=== PATIENT | female | born 2000 | race Caucasian/White ===

== ENCOUNTER 2020-04-28 21:12 | Emergency (ER) | payer OTHER ==
--- NOTE | 2020-04-28 21:28 | EDM.PDOC ---
ED HPI GENERAL MEDICAL PROBLEM - General Chief Complaint: Upper Extremity Injury/Pain Stated Complaint: HURT ELBOW Time Seen by Provider: 04/28/20 21:27 Source of Information: Reports: Patient History Limitations: Reports: No Limitations - History of Present Illness INITIAL COMMENTS - FREE TEXT/NARRATIVE: Patient fell while roller skating @40 min ago, landed on right elbow. Complains of right elbow pain, and to a lesser degree right wrist pain. Also complains of tingling to the right hand. No other injuries. Tetanus vaccine UTD. 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 ED EXAM, GENERAL - Physical Exam Exam: See Below Exam Limited By: No Limitations General Appearance: Alert, WD/WN, No Apparent Distress Ears: Normal External Exam Throat/Mouth: No Airway Compromise Head: Atraumatic, Normocephalic Neck: Full Range of Motion Respiratory/Chest: No Respiratory Distress Peripheral Pulses: 2+: Radial (R) Extremities: Normal Capillary Refill, Other (Right olecranon tenderness, no deformity. Right medial wrist tenderness, no deformity.) Neurological: Alert, Normal Cognition, No Motor/Sensory Deficits Psychiatric: Normal Affect, Normal Mood Skin Exam: Warm, Dry, Other (right olecranon abrasion) Course - Vital Signs Last Recorded V/S: Last Vital Signs Temp 36.5 C 04/28/20 21:12 Pulse 110 H 04/28/20 21:12 Resp 16 04/28/20 21:12 BP 125/67 04/28/20 21:12 Pulse Ox 99 04/28/20 21:12 - Orders/Labs/Meds Orders: Active Orders 24 hr Category Date Time Status Elbow Min 3V Rt [CR] Stat Exams 04/28/20 21:25 Taken Wrist Comp Min 3V Rt [CR] Stat Exams 04/28/20 21:25 Taken Meds: Medications Discontinued Medications Generic Name Dose Route Start Last Admin Trade Name Jhony PRN Reason Stop Dose Admin Ibuprofen 600 mg 04/28/20 21:30 04/28/20 21:44 Motrin PO 04/28/20 21:31 600 mg ONETIME ONE Administration - Radiology Interpretation Free Text/Narrative:: Right elbow and wrist xray: no fracture or dislocation. (ED provider interpretation) Departure - Departure Time of Disposition: 21:47 Disposition: Home, Self-Care 01 Condition: Good Clinical Impression: Contusion of elbow, right Qualifiers: Encounter type: initial encounter Qualified Code(s): S50.01XA - Contusion of right elbow, initial encounter Contusion of wrist, right Qualifiers: Encounter type: initial encounter Qualified Code(s): S60.211A - Contusion of right wrist, initial encounter - Discharge Information *PRESCRIPTION DRUG MONITORING PROGRAM REVIEWED*: No *COPY OF PRESCRIPTION DRUG MONITORING REPORT IN PATIENT HALIE: Not Applicable Instructions: Elbow Contusion, [id number] Referrals: PCP,None [Primary Care Provider] - Forms: ED Department Discharge Additional Instructions: Ice the area affected. Take Ibuprofen as needed. Follow up in 1 week if symptoms haven't resolved. Sepsis Event Note (ED) - Focused Exam Vital Signs: Vital Signs Temp Pulse Resp BP Pulse Ox 04/28/20 21:12 36.5 C 110 H 16 125/67 99 - My Orders Last 24 Hours: My Active Orders 04/28/20 21:25 Elbow Min 3V Rt [CR] Stat Wrist Comp Min 3V Rt [CR] Stat - Assessment/Plan Last 24 Hours: My Active Orders 04/28/20 21:25 Elbow Min 3V Rt [CR] Stat Wrist Comp Min 3V Rt [CR] Stat
[2020-04-28] MEDS ORDERED: Ibuprofen 600 MG Tab PO ONE (21:30)
--- NOTE | 2020-04-29 10:47 | CR ---
INDICATION: Injury, fell on roller skates. RIGHT WRIST: Three views of the right wrist were obtained 04/28/2020 - no comparison. A fracture, dislocation or other definite bone or joint abnormality, was not identified. If symptoms persist - if occult fracture site is suspected clinically, re- examination in 10-14 days may be helpful. [facility]
--- NOTE | 2020-04-29 10:58 | CR ---
INDICATION: Injury, fell on roller skates. RIGHT ELBOW: Three views of the right elbow were obtained 04/28/20 - no comparison. An acute fracture, dislocation, joint effusion, or other significant bone or joint abnormality, was not identified. If symptoms persist - if occult fracture site is suspected clinically, reexamination in 10 to 14 days [address] be helpful[address] [facility]
== END 2020-04-28 21:53 | disposition home or self-care (01) ==
LOC: FB.ED 21:12
DX: S60.211A Contusion of right wrist, initial encounter (principal); S50.01XA Contusion of right elbow, initial encounter; W09.8XXA Fall on or from other playground equipment, initial encounter; Y93.51 Activity, roller skating (inline) and skateboarding
CPT/HCPCS: 73080; 73110; 99283; A9270

== ENCOUNTER 2021-09-03 13:38 | Observation (INO) | payer SELFPAY ==
[2021-09-03] MEDS ORDERED: Metoclopramide 10 MG/2 ML SDV IVPUSH ONE (13:50)
[2021-09-03] MEDS: Lactated Ringers 1,000 ML IV SCH ×3 (14:10→18:53)
--- NOTE | 2021-09-03 16:50 | PCM.HP.2 ---
H&P History of Present Illness - General Date of Service: 09/03/21 Admit Problem/Dx: Admission Diagnosis/Problem Admission Diagnosis/Problem Hyperemesis gravidarum Source of Information: Patient History Limitations: Reports: No Limitations - History of Present Illness Initial Comments - Free Text/Narative: Ms. Acosta is a 21-year-old female primigravida about 7 weeks along,who has nausea and vomiting- intractable for the last 3 days. Was in the clinic once, then the ER at [facility]. She's been admitted directly for IV fluid replacement. She complains of mild vaginal spotting.Tried Unisom,and Zofran with no relief. - Related Data Allergies/Adverse Reactions: Allergies Allergy/AdvReac Type Severity Reaction Status Date / Time Latex, Natural Rubber Allergy Intermediate Hives Verified 09/03/21 13:52 Home Medications: Home Meds Doxylamine Succinate [Unisom] 25 mg PO BEDTIME 09/03/21 [History] Vits #93/Iron Fum/FA [ Formula Tablet] 1 tab PO DAILY 09/03/21 [History] Vitamin B6-pyridOXINE [Vitamin B6] 50 mg PO DAILY 09/03/21 [History] ondansetron HCL [Zofran] 4 mg PO Q6HR PRN 09/03/21 [History] Past Medical History - Past Health History Medical/Surgical History: Denies Medical/Surgical History Gastrointestinal History: Reports: Other (See Below) Other Gastrointestinal History: Sensitive [employer] 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: Other OB/BYN History: 7wks Neurological History: Reports: TIA Other Neuro History: TIA 2019 Psychiatric History: Reports: Anxiety, Depression - Past Surgical History HEENT Surgical History: Reports: Tonsillectomy GI Surgical History: Reports: Appendectomy Female Surgical History: Reports: None Social & Family History - Family History Family Medical History: No Pertinent Family History - Tobacco Use Tobacco Use Status *Q: Never Tobacco User Second Hand Smoke Exposure: No - Caffeine Use Caffeine Use: Reports: None - Recreational Drug Use Recreational Drug Use: No H&P Review of Systems - Review of Systems: Review Of Systems: Comprehensive ROS is negative, except as noted in HPI. Exam - Exam Exam: See Below - Vital Signs Vital Signs: Last Vital Signs Temp 98.2 F 09/03/21 13:48 Pulse 82 12/01/21 13:48 Resp 16 09/03/21 13:48 BP 132/81 09/03/21 13:48 Pulse Ox 98 09/03/21 13:48 Weight: 105.942 kg - Exam General: Alert, Oriented, 4 HEENT: PERRLA, Hearing Intact, Mucosa Moist & [place], Nares Patent, Normal Nasal Septum, Posterior Pharynx Clear, Conjunctiva Clear, EOMI, EACs Clear, TMs Clear Neck: Supple, Trachea Midline, 2 Lungs: Clear to Auscultation, Normal Respiratory Effort Cardiovascular: Regular Rate, Regular Rhythm GI/Abdominal Exam: Normal Bowel Sounds, Soft, Non-Tender, No Organomegaly, No Distention, No Abnormal Bruit, No Mass, Pelvis Stable (Female) Exam: Deferred Rectal (Female) Exam: Deferred Back Exam: Normal Inspection, Full Range of Motion, NT Extremities: Normal Inspection, Normal Range of Motion, Non-Tender, No Pedal Edema, Normal Capillary Refill Skin: Warm, Dry, Intact Neurological: Cranial Nerves Intact, Reflexes Equal Bilateral Neuro Extensive - Mental Status: Alert, Oriented x3, Normal Mood/Affect, Normal Cognition Neuro Extensive - Motor, Sensory, Reflexes: CN II-XII Intact, Normal Gait, Normal Reflexes Psychiatric: Alert, Normal Affect, Normal Mood - Patient Data Result Diagrams: 09/04/21 06:22 09/04/21 06:22 Sepsis Event Note - Evaluation Sepsis Screening Result: No Definite Risk - Focused Exam Vital Signs: Vital Signs Temp Pulse Resp BP Pulse Ox 09/03/21 13:48 98.2 F 82 16 132/81 98 - Problem List (1) Vomiting affecting , antepartum SNOMED Code(s): 84631495, [id number], [id number] ICD Code: O21.9 - VOMITING OF , UNSPECIFIED Status: Acute Current Visit: Yes Problem List Initiated/Reviewed/Updated: Yes Orders Last 24hrs: Active Orders 24 hr Category Date Time Status Admission Status [Patient Status] [ADT] Routine ADT 09/03/21 13:45 Active BASIC METABOLIC PANEL,BMP [CHEM] AM Lab 09/04/21 05:11 Ordered CBC WITH AUTO DIFF [HEME] AM Lab 09/04/21 05:11 Ordered Lactated Ringers @ 150 MLS/HR(1000ml) Med 09/03/21 17:00 Ordered Lactated Ringers [Ringers, Lactated] 1,000 ml IV ASDIRECTED Lactated Ringers [Ringers, Lactated] 1,000 ml Med 09/03/21 14:00 Active IV ASDIRECTED Promethazine [Phenergan] 12.5 mg Med 09/03/21 16:49 Ordered Sodium Chloride 0.9% [Normal Saline] 50 ml IV Q6H Medication Orders Lactated Ringer's (Ringers, Lactated) 1,000 mls @ 500 mls/hr IV ASDIRECTED STEPHAN Last Admin: 09/03/21 14:10 Dose: 500 mls/hr Documented by: TAL Lactated Ringer's (Ringers, Lactated) 1,000 mls @ 150 mls/hr IV ASDIRECTED STEPHAN Promethazine HCl 12.5 mg/ (Sodium Chloride) 50.5 mls @ 200 mls/hr IV Q6H PRN PRN Reason: Nausea/Vomiting Assessment/Plan Comment:: IV NS,Reglan prn and Promethazine PRN
[2021-09-03] MEDS: Promethazine 12.5 MG in Sodium Chloride 0.9% 50 ML IV PRN (21:09)
[2021-09-04] MEDS: Lactated Ringers 1,000 ML IV SCH (01:31)
[2021-09-04] MEDS: Promethazine 12.5 MG in Sodium Chloride 0.9% 50 ML IV PRN (06:27)
--- NOTE | 2021-09-04 11:58 | DISCH ---
DISCHARGE DATE: 09/04/2021 REASON FOR ADMISSION: 1. Intractable nausea and vomiting. 2. Early stage of . BRIEF HISTORY: This is a 21-year-old female who was admitted with intractable nausea, vomiting from the clinic. She is about 7 weeks . She was given normal saline and IV promethazine that seems to help. She is ready to go home this morning. Complains of mild epigastric discomfort. I will discharge her home on promethazine orally and Protonix 40 mg a day, and followup visit in the clinic. I spent more than 30 minutes in the discharge of the patient. /[id number] HEBER/SUSHILA
== END 2021-09-04 10:20 | disposition home or self-care (01) ==
LOC: FB.MS 13:38
PROVIDERS: ADMIT Family Medicine; ATTEND Family Medicine
DX: O21.9 Vomiting of pregnancy, unspecified (principal); F41.9 Anxiety disorder, unspecified; F32.A Depression, unspecified; Z98.890 Other specified postprocedural states; Z91.040 Latex allergy status; Z79.899 Other long term (current) drug therapy; Z86.73 Personal history of transient ischemic attack (TIA), and cerebral infarction without residual deficits; Z90.49 Acquired absence of other specified parts of digestive tract
CPT/HCPCS: 36415; 80048; 85025; 96374; 96375; 96376; G0378; J2550; J2765; J7120

== ENCOUNTER 2022-04-02 19:37 | Emergency (ER) | payer OTHER ==
[2022-04-02] MEDS ORDERED: Lactated Ringers 1,000 ML IV ONE (19:52)
[2022-04-02] MEDS ORDERED: Sodium Chloride 0.9% 10 ML Syringe FLUSH PRN (19:53)
== END 2022-04-02 21:35 | disposition home or self-care (01) ==
LOC: FB.ED 19:37
DX: O99.283 Endocrine, nutritional and metabolic diseases complicating pregnancy, third trimester (principal); E86.0 Dehydration; Z91.040 Latex allergy status; Z86.73 Personal history of transient ischemic attack (TIA), and cerebral infarction without residual deficits; Z3A.37 37 weeks gestation of pregnancy
CPT/HCPCS: 96360; 99283; J7120